=== PATIENT | female | born 1995 | race Caucasian/White ===

== ENCOUNTER 2017-01-11 15:00 | Inpatient (IN) | payer BC, MEDICAID ==
[~2017-01-11] VITALS: Ht 152.4 cm; Wt 89.8 kg
--- NOTE | ~2017-01-11 | FD ---
ADMIT: 01/11/2017 RM/LOC: 226 [facility] MR#: [id number] [address] [phone] ENMANUEL ODELL [address] [place] [phone] Final Diagnosis SEX: F AGE: 21 : 1995 ADMISSION DATE: 01/11/2017 DISCHARGE DATE: 01/12/2017 FINAL DIAGNOSIS: 1. A 21-year-old 2 para 0-0-02, status post spontaneous vaginal delivery at 34 weeks 6 days estimated gestational age. 2. History of Chlamydia status post treatment. 3. History of labor at 32 weeks. PROCEDURE: Spontaneous vaginal delivery. Nicolette Aguillon MD Resident / Eliana Tapia MD / chad JOB #: [id number] CC: Eliana Tapia MD, Attending Physician Eliana Tapia MD, Family Physician
--- NOTE | ~2017-01-11 | HP ---
ADMIT: 01/11/2017 RM/LOC: 226 [facility] MR#: [id number] [id number] [place], [place] [address] ENMANUEL ODELL [address] [place] [phone] History and Physical SEX: F AGE: 21 : 1995 DATE OF SERVICE: CHIEF COMPLAINT: Contractions and vaginal bleeding. HISTORY OF PRESENT ILLNESS: This is a 21-year-old, G2, P0-1-0-1 with intrauterine at 34 weeks 6 days via 7-week ultrasound, who presented to the ER with severe abdominal pain and contractions in addition to vaginal bleeding. Her contractions started yesterday morning. She was admitted to [facility] in [place], [place] overnight for observation. Her contractions persisted, however, her cervical exam was unchanged, so she was discharged to home this morning. The patient presented to this facility as she did not feel like she could drive back to [place] given the pain and vaginal bleeding. She denied leaking of fluid. Normal movement. COMPLICATION: She has history of delivery at 35 weeks 1 day approximately three years ago. She has been on Scarlett this . She also has a history of labor this with steroids given at 32 weeks. She was admitted to the hospital for eight days at 32 weeks for labor. She has a history of chlamydia this , which was treated with azithromycin in June 2016. She had a positive testing in July 2016. She again received a round of azithromycin. She did not have an additional negative test of cure. 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 SURGICAL HISTORY: Colostomy and colectomy of large and small bowel as an , tonsils and adenoids. MEDICATIONS: 1. Colace. 2. [place]. 3. She is not taking vitamin. ALLERGIES: PENICILLIN. SHE GETS A RASH WITH PENICILLIN. SOCIAL HISTORY: Boyfriend and father of baby is involved. No known alcohol use, tobacco use, recreational drug use. FAMILY HISTORY: She denies a family history of hypertension or diabetes. REVIEW OF SYSTEMS: She denies headache, changes in vision, chest pain, shortness of breath. No nausea, vomiting, diarrhea, or constipation. PHYSICAL EXAMINATION: VITAL SIGNS: At the time of presentation, the patient's blood pressure was 148/86, pulse was 90. She was afebrile and respiratory rate was 18. She is saturating 96% on room air. GENERAL: She was in acute distress at this time screaming in pain. HEART: Regular rate and rhythm. ADMIT: 01/11/2017 RM/LOC: 226 [facility] MR#: [id number] [address] [phone] [facility] [address] [place] [phone] History and Physical SEX: F AGE: 21 : 1995 LUNGS: Clear to auscultation bilaterally. ABDOMEN: She has diffuse scarring and contractures. She is gravid. Estimated weight 2500 g. EXTREMITIES: Trace edema. CERVIX: Sterile vaginal exam, she was complete with +2 station at time of presentation. heart tones 130 baseline, positive accelerations, moderate variability, and possible decelerations. However, patient is not tracing well in the monitor due to frequent writhing in pain. Contractions occurring every 1 to 2 minutes. LABORATORY DATA: Blood type is A positive. Direct antibody testing negative. GBS negative. Hepatitis B negative. HIV negative. Rubella immune. Syphilis, RPR nonreactive. Hemoglobin 13.7, platelets of 319. Chlamydia positive in June of 2016, status post treatment, positive again in July of 2016, positive and treated, no other test of cure. Gonorrhea negative. ASSESSMENT AND PLAN: This is a 21-year-old, G2, P0-1-0-1 with intrauterine at 34 weeks 6 days via a 7-week ultrasound, who [facility] with chief complaint of frequent contractions and vaginal bleeding. 1. The patient was admitted with anticipation of precipitous delivery. NICU staff was notified as well as [employer]RIEND [employer] staff. The patient verbally consented to vaginal delivery. She agreed to transfusion if needed. Blood type A positive, GBS negative. 2. labor, status post Celestone. NICU staff notified and present for delivery. 3. Chlamydia positive, status post treatment x2. Negative test of cure in August of 2016. 4. Patient was seen and discussed with staff on day of admission. Nicolette Aguillon MD Resident / Eliana Tapia MD / katharina JOB #: [id number] CC: Eliana Tapia, Attending Physician Eliana Tapia, Family Physician
--- NOTE | 2017-01-13 12:51 | OR ---
ADMIT: 01/11/2017 RM/LOC: 226 [facility] MR#: [id number] [id number] [place], [place] [phone] ENMANUEL ODELL [address] [place] [address] [phone] Operative/Delivery Room Report SEX: F AGE: 21 : 1995 SURGERY DATE: 01/11/2017 SURGEON: Eliana Tapia MD PROCEDURE: Spontaneous vaginal delivery. PREOPERATIVE DIAGNOSES: 1. A 21-year-old, 2, para 0-1-0-1 with intrauterine at 34 weeks 6 days via 7 week ultrasound. 2. History of delivery at 35 weeks 1 day/on Scarlett injections this . 3. History of labor this around 32 weeks. Status post Celestone. POSTOPERATIVE DIAGNOSES: 1. 21-year-old, 2, para 0-2-0-2 status post spontaneous vaginal delivery at 34 weeks 6 days. 2. Precipitous delivery. ANESTHESIA: None. ESTIMATED BLOOD LOSS: 250 mL. FINDINGS: Viable female with a weight of 4 pounds 13 ounces. scores of 7 and 9. Normal placenta with 3-vessel cord. SPECIMENS REMOVED: Placenta and cord blood. HOSPITAL COURSE AND PROCEDURE: This is a 21-year-old, G2, P0-1-0-1 with an intrauterine at 34 weeks 6 days by a 7 week ultrasound who presented to [facility] with chief complaint of frequent contractions and vaginal bleeding. The patient reported her contractions have been present since yesterday morning and she was seen at [facility] in [place], [place] and admitted overnight. Due to no cervical change, she was discharged home today with return precautions from [facility]. She was 5 cm at the time of discharge. The patient reported her contractions continued and persisted as well as increased pelvic pressure and she presented to [facility]. At the time of admission, patient was checked and found to be 10 cm dilated with a station of 2+. Admission steps for expedited and [employer] staff as well as NICU staff was notified for concern for precipitous delivery. Ultimately, the patient underwent a spontaneous vaginal delivery. She was draped and prepped in the dorsal lithotomy position in a sterile fashion. Expulsive efforts were begun. The infant's head was brought to the perineum and delivered over an intact perineum. The anterior and posterior shoulders followed without difficulties. There was no nuchal cord present. The infant was vigorous and crying and was placed on the maternal abdomen. The was stimulated. After delayed cord clamping, the infant's cord was clamped and cut. Cord blood was collected. Cord gas was not collected. The placenta delivered spontaneously with a 3-vessel cord. Pitocin ADMIT: 01/11/2017 RM/LOC: 226 [facility] MR#: [id number] [address] [phone] [place] [address] [phone] Operative/Delivery Room Report SEX: F AGE: 21 : 1995 was administered per protocol. The vagina, perineum, and cervix were inspected for lacerations. No lacerations were noted. All tissues were found to be hemostatic. The fundus firm and below the umbilicus. Counts were correct. The patient tolerated the procedure well. The infant was initially placed on the maternal abdomen and later evaluated by intensive care team. Due to age of infant, the infant was admitted to the intensive care unit. No resuscitative measures have been initiated at the time of admission to NICU. Overall, patient tolerated the procedure well. Mother stable in her room and infant stable in the NICU. Dr. Eliana Tapia was present for the entire procedure. Nicolette Aguillon MD Resident / Eliana Tapia MD / katharina JOB #: [id number] CC: Eliana Tapia, Attending Physician Eliana Tapia, Family Physician
[2017-01-14] MEDS ORDERED: COLACE-DPS100 MG PO (06:28)
[2017-01-14] MEDS ORDERED: MOTRIN-DPS800 MG PO (06:29)
== END 2017-01-12 15:30 | disposition home or self-care (01) | DRG 775 ==
LOC: BC 15:00 → 2LDRP 15:00
PROVIDERS: ADMIT Obstetrics & Gynecology
PROC: 10E0XZZ Delivery of Products of Conception, External Approach (ICD-10-PCS; principal; 2017-01-11)
DX: O60.14X0 Preterm labor third trimester with preterm delivery third trimester, not applicable or unspecified (principal); E66.9 Obesity, unspecified; O62.3 Precipitate labor; O99.214 Obesity complicating childbirth; Z68.36 Body mass index [BMI] 36.0-36.9, adult; Z90.49 Acquired absence of other specified parts of digestive tract; Z88.0 Allergy status to penicillin; Z3A.34 34 weeks gestation of pregnancy; Z37.0 Single live birth